=== PATIENT | male | born 1965 | race Caucasian/White ===

== ENCOUNTER 2017-04-14 10:35 | Outpatient (CLI) | payer OTHER ==
[2017-04-14] MEDS ORDERED: Sodium Chloride 0.9% 15 ML NEB ONE (11:11)
--- NOTE | 2017-04-14 13:21 | PRG ---
DATE OF SERVICE: 04/14/2017 SUBJECTIVE: A 51-year-old male returns today for 2 weeks status post left partial fifth ray amputat ion, doing well. Denies nausea, vomiting, fevers or chills. He says he has a little bit high blood pressure recently, which has made him feel little under the weather, has kept the dressing in place since the last visit. PHYSICAL EXAMINATION: Examination of the amputation site shows the sutures are intact. No dehiscen ce or necrosis. No drainage, no erythema or warmth. ASSESSMENT: 1. A 2 weeks status post left partial fifth ray amputation, healing well. 2. Diabetes with peripheral neuropathy. PLAN: 1. Sutures removed today. 2. Keep a dry gauze bandage over the amputation site to protect for the next several weeks. 3. The patient will follow up with me in 4 weeks or sooner should he have any problems before that time.
== END 2017-04-14 10:36 | disposition home or self-care (01) ==
LOC: WCC 10:35
PROVIDERS: ATTEND Podiatrist Foot & Ankle Surgery
DX: E11.51 Type 2 diabetes mellitus with diabetic peripheral angiopathy without gangrene (principal); Z89.9 Acquired absence of limb, unspecified
CPT/HCPCS: 36416; 97602; A4218